=== PATIENT | female | born 1960 | race African-American/Black ===

== ENCOUNTER 2019-05-03 00:48 | Emergency (ER) | payer MEDICAID ==
[~2019-05-03] VITALS: Ht 162.6 cm; Wt 136.5 kg
[2019-05-03 00:56] VITALS: BP 148/91
[2019-05-03] MEDS ORDERED: LORazepam 0.5 MG TAB PO ONE (03:00)
[2019-05-03] MEDS ORDERED: methylPREDNISolone SOD SUCC 125 MG/2 ML VL IM ONE (03:00)
[2019-05-03] MEDS ORDERED: KETOROLAC TROMETH 60MG/2ML VIAL IM ONE (03:00)
[2019-05-03] MEDS ORDERED: BACITRACIN TOP OINT 1 UD PKG TOP ONE (04:15)
== END 2019-05-03 04:18 | disposition home or self-care (01) ==
LOC: ER 00:52
DX: S91.202A Unspecified open wound of left great toe with damage to nail, initial encounter (principal); X58.XXXA Exposure to other specified factors, initial encounter; Y93.89 Activity, other specified; Y92.89 Other specified places as the place of occurrence of the external cause; Y99.8 Other external cause status
CPT/HCPCS: 11730; 73630; 96372; 99283; J1885; J2930

== ENCOUNTER 2019-07-11 14:08 | Emergency (ER) | payer MEDICAID ==
[~2019-07-11] VITALS: Ht 162.6 cm; Wt 135.2 kg
[2019-07-11 17:18] VITALS: BP 123/81
== END 2019-07-11 17:34 | disposition home or self-care (01) ==
LOC: ER 14:08
DX: M19.012 Primary osteoarthritis, left shoulder (principal); M25.511 Pain in right shoulder; M79.671 Pain in right foot; Z90.710 Acquired absence of both cervix and uterus; Z98.51 Tubal ligation status; V43.52XA Car driver injured in collision with other type car in traffic accident, initial encounter; Y93.89 Activity, other specified; Y92.488 Other paved roadways as the place of occurrence of the external cause; Y99.8 Other external cause status
CPT/HCPCS: 73030; 73630

== ENCOUNTER 2019-08-17 15:08 | Emergency (ER) | payer MEDICAID, OTHER ==
[~2019-08-17] VITALS: Ht 162.6 cm; Wt 133.4 kg
[2019-08-17] MEDS ORDERED: cefTRIAXone W LIDOCAINE 1 GM IM IM ONE (15:45)
[2019-08-17] MEDS ORDERED: cefTRIAXone SOD 1,000 MG VL IM ONE (16:00)
[2019-08-17] MEDS ORDERED: cefTRIAXone SOD 1,000 MG VL ONE (16:11)
[2019-08-17 16:38] LABS: Basophils # (auto) 0.1 uL; Basophils % (auto) 0.7 % (0.0-2.0); Eosinophils # (auto) 0.1 uL; Eosinophils % (auto) 1.3 % (0.0-7.0); Hematocrit 43.9 % (36.0-46.0); Hemoglobin 15.1 g/dL (12.2-16.2); Lymphocytes # (auto) 3.4 uL; Lymphocytes % (auto) 32.8 % (10.0-50.0); Mean Corpuscular Hgb Conc. 34.4 g/dL (32.0-36.0); Monocytes # (auto) 0.8 uL; Neutrophils # (auto) 5.9 uL; Neutrophils % (auto) 57.2 % (37.0-80.0); Nucleated Red Blood Cells % 0.1 %; Platelet Count (auto) 248 10^3/uL (140-450); Red Blood Cells 4.87 10^6/uL (4.0-5.20); Red Cell Distribution Width 13.9 % (11.8-14.3); White Blood Cell 10.4 10^3/uL (4.4-10.8)
[2019-08-17 16:46] LABS: Albumin 3.6 g/dL (3.4-5.0); Calcium 9.2 mg/dL (8.5-10.1)
[2019-08-17 16:49] LABS: BUN/Creatinine Ratio 14.3; Bilirubin, Total 0.4 mg/dL (0.2-1.0); Total Protein 8.2 g/dL (6.4-8.2)
[2019-08-17 17:00] VITALS: BP 142/86
== END 2019-08-17 17:12 | disposition home or self-care (01) ==
LOC: ER 15:12
DX: J44.1 Chronic obstructive pulmonary disease with (acute) exacerbation (principal); F17.210 Nicotine dependence, cigarettes, uncomplicated
CPT/HCPCS: 36415; 71046; 80053; 85025; 99284; J0696

== ENCOUNTER 2021-02-18 10:03 | Emergency (ER) | payer OTHER, MEDICAID ==
[~2021-02-18] VITALS: Ht 162.6 cm; Wt 131.5 kg
[2021-02-18 10:15] VITALS: BP 137/93
[2021-02-18 11:14] LABS: Basophils # (auto) 0.1 10 ^3/uL (0-0.2); Basophils % (auto) 0.7 % (0.0-2.0); Eosinophils # (auto) 0.1 10 ^3/uL (0-0.8); Hematocrit 45.2 % (36.0-46.0); Hemoglobin 16.1 g/dL (12.2-16.2); Lymphocytes % (auto) 26.7 % (10.0-50.0); Mean Corpuscular Hemoglobin 31.9 pg (28.0-32.0); Mean Corpuscular Hgb Conc. 35.6 g/dL (32.0-36.0); Mean Corpuscular Volume 89.7 fL (80.0-100.0); Monocytes # (auto) 0.8 10 ^3/uL (0-1.3); Monocytes % (auto) 7.1 % (0.0-12.0); Neutrophils # (auto) 7.2 10 ^3/uL (1.6-8.6); Neutrophils % (auto) 64.5 % (37.0-80.0); Nucleated Red Blood Cells % 0.2 %; Red Blood Cells 5.04 10^6/uL (4.0-5.20); Red Cell Distribution Width 13.9 % (11.8-14.3); White Blood Cell 11.1 10^3/uL (4.4-10.8)
[2021-02-18 11:34] LABS: Albumin 3.5 g/dL (3.4-5.0); Potassium 4.2 mmol/L (3.5-5.1)
[2021-02-18 11:43] LABS: Bilirubin, Total 0.4 mg/dL (0.2-1.0); Total Protein 8.2 g/dL (6.4-8.2)
== END 2021-02-18 12:24 | disposition home or self-care (01) ==
LOC: ER 10:03
DX: J20.9 Acute bronchitis, unspecified (principal); F17.210 Nicotine dependence, cigarettes, uncomplicated; Z90.49 Acquired absence of other specified parts of digestive tract; Z90.89 Acquired absence of other organs; Z90.710 Acquired absence of both cervix and uterus; Z20.822 Contact with and (suspected) exposure to COVID-19
CPT/HCPCS: 36415; 71045; 80053; 85025; 87426; 93005

== ENCOUNTER 2021-04-30 13:14 | Inpatient (IN) | payer OTHER, MEDICAID ==
[~2021-04-30] VITALS: Ht 162.6 cm; Wt 135.1 kg
[2021-04-30 14:33] LABS: Basophils # (auto) 0.1 10 ^3/uL (0-0.2); Basophils % (auto) 0.9 % (0.0-2.0); Eosinophils # (auto) 0.1 10 ^3/uL (0-0.8); Eosinophils % (auto) 0.6 % (0.0-7.0); Hemoglobin 16.4 g/dL (12.2-16.2); Lymphocytes # (auto) 3.6 10 ^3/uL (0.4-5.4); Lymphocytes % (auto) 28.9 % (10.0-50.0); Mean Corpuscular Hemoglobin 30.7 pg (28.0-32.0); Mean Corpuscular Hgb Conc. 34.2 g/dL (32.0-36.0); Mean Corpuscular Volume 89.8 fL (80.0-100.0); Monocytes % (auto) 8.2 % (0.0-12.0); Neutrophils # (auto) 7.7 10 ^3/uL (1.6-8.6); Neutrophils % (auto) 61.4 % (37.0-80.0); Nucleated Red Blood Cells % 0.1 %; Red Blood Cells 5.34 10^6/uL (4.0-5.20); Red Cell Distribution Width 13.6 % (11.8-14.3); White Blood Cell 12.6 10^3/uL (4.4-10.8)
[2021-04-30 14:55] LABS: Albumin 3.9 g/dL (3.4-5.0); Calcium 9.7 mg/dL (8.5-10.1)
[2021-04-30 15:01] LABS: Bilirubin, Total 0.4 mg/dL (0.2-1.0); Total Protein 8.7 g/dL (6.4-8.2)
[2021-04-30 15:35] LABS: Magnesium 2.2 mg/dL (1.6-2.6)
[2021-04-30] MEDS ORDERED: FUROSEMIDE 40 MG/4 ML VIAL IV ONE (16:45)
[2021-04-30 17:09] LABS: Urine Bacteria NONE SEEN /hpf (None Seen); Urine Blood 2+ /uL (Negative); Urine Mucus FEW (None Seen); Urine Specific Gravity 1.022 (1.001-1.035); Urine WBC 1 /hpf (0 - 5)
[2021-04-30] MEDS ORDERED: TEMAZEPAM 15 MG CAP PO PRN (21:00)
[2021-04-30] MEDS ORDERED: ONDANSETRON HCL 4 MG/2 ML VIAL IV PRN (21:00)
[2021-04-30] MEDS ORDERED: MORPHINE SULFATE INJECTION 2 MG/ML SYRG IV PRN (21:00)
[2021-04-30] MEDS ORDERED: ACETAMINOPHEN 325 MG TAB PO PRN (21:00)
[2021-04-30] MEDS ORDERED: AZITHROMYCIN 500MG/ 250ML 250 ML IV ONE (21:00)
[2021-04-30] MEDS ORDERED: NITROGLYCERIN 0.4 MG SL TAB SL PRN (21:00)
[2021-04-30] MEDS: METOPROLOL TARTRATE 25 MG TAB PO SCH (21:32)
[2021-04-30] MEDS: ATORVASTATIN 20 MG TAB PO SCH (22:07)
[2021-05-01] MEDS: HYDROcodone-ACET 5/325MG TAB PO PRN ×3 (02:28→17:36)
[2021-05-01 07:44] LABS: Basophils # (auto) 0.1 10 ^3/uL (0-0.2); Basophils % (auto) 0.7 % (0.0-2.0); Eosinophils # (auto) 0.1 10 ^3/uL (0-0.8); Eosinophils % (auto) 0.9 % (0.0-7.0); Hematocrit 45.4 % (36.0-46.0); Hemoglobin 15.3 g/dL (12.2-16.2); Lymphocytes # (auto) 3.9 10 ^3/uL (0.4-5.4); Lymphocytes % (auto) 34.7 % (10.0-50.0); Mean Corpuscular Hemoglobin 30.6 pg (28.0-32.0); Mean Corpuscular Hgb Conc. 33.6 g/dL (32.0-36.0); Mean Corpuscular Volume 91.1 fL (80.0-100.0); Monocytes # (auto) 0.8 10 ^3/uL (0-1.3); Monocytes % (auto) 7.6 % (0.0-12.0); Neutrophils # (auto) 6.2 10 ^3/uL (1.6-8.6); Neutrophils % (auto) 56.1 % (37.0-80.0); Nucleated Red Blood Cells % 0.1 %; Red Blood Cells 4.99 10^6/uL (4.0-5.20); Red Cell Distribution Width 13.6 % (11.8-14.3); White Blood Cell 11.1 10^3/uL (4.4-10.8)
[2021-05-01 07:58] LABS: Albumin 3.6 g/dL (3.4-5.0); Calcium 9.3 mg/dL (8.5-10.1); Potassium 3.6 mmol/L (3.5-5.1)
[2021-05-01 08:01] LABS: Bilirubin, Total 0.6 mg/dL (0.2-1.0)
[2021-05-01] MEDS: guaiFENesin-DM 100/10mg/5ml SYR PO PRN (08:40)
[2021-05-01] MEDS: METOPROLOL TARTRATE 25 MG TAB PO SCH ×2 (09:38→21:46)
[2021-05-01] MEDS: ENOXAPARIN SOD 40 MG/0.4 ML SYRINGE SC SCH (09:40)
[2021-05-01] MEDS: AZITHROMYCIN 500MG/ 250ML 250 ML IV SCH (09:40)
[2021-05-01] MEDS: PANTOPRAZOLE 40 MG TAB PO SCH (09:40)
[2021-05-01] MEDS: ASPirin 81 mg TAB PO SCH (09:40)
[2021-05-01] MEDS ORDERED: FUROSEMIDE 40 MG TAB PO SCH (10:00)
[2021-05-01] MEDS ORDERED: CHOL1CAP58 PO (11:59)
[2021-05-01] MEDS ORDERED: ALBU108A5 IN (11:59)
[2021-05-01] MEDS ORDERED: IBUP800T27 PO (11:59)
[2021-05-01] MEDS ORDERED: PROM1SOL4 PO (11:59)
[2021-05-01] MEDS ORDERED: OXYC325T14 PO (11:59)
[2021-05-01] MEDS ORDERED: METH4TAB7 PO (11:59)
[2021-05-01] MEDS ORDERED: CIPR500T4 PO (11:59)
[2021-05-01] MEDS ORDERED: [UNRECOGNIZED DRUG - CODE] IN (11:59)
[2021-05-01] MEDS ORDERED: IOHEXOL 350 MG/ML 100ML IJ ONE (12:30)
[2021-05-01 13:30] VITALS: BP 115/81
[2021-05-01 15:54] LABS: Cholesterol 153 mg/dL (< 200); HDL Cholesterol 42 mg/dL (40-59); LDL Cholesterol 91 mg/dL (< 100); Triglycerides 124 mg/dL (< 150)
[2021-05-01 17:00] VITALS: BP 100/51
[2021-05-01] MEDS: ATORVASTATIN 20 MG TAB PO SCH (21:46)
[2021-05-01 22:00] VITALS: BP 106/73
[2021-05-02] MEDS: HYDROcodone-ACET 5/325MG TAB PO PRN (03:36)
[2021-05-02 05:00] VITALS: BP 118/73
[2021-05-02 09:00] VITALS: BP 102/71
[2021-05-02] MEDS: NICOTINE 7MG/24HR TOPICAL PATCH TD SCH (10:00)
[2021-05-02] MEDS: METOPROLOL TARTRATE 25 MG TAB PO SCH ×3 (10:00→22:00)
[2021-05-02] MEDS: ENOXAPARIN SOD 40 MG/0.4 ML SYRINGE SC SCH (10:25)
[2021-05-02] MEDS: ASPirin 81 mg TAB PO SCH (10:25)
[2021-05-02] MEDS: PANTOPRAZOLE 40 MG TAB PO SCH (10:25)
[2021-05-02] MEDS: AZITHROMYCIN 500MG/ 250ML 250 ML IV SCH (10:25)
[2021-05-02] MEDS: guaiFENesin-DM 100/10mg/5ml SYR PO PRN ×2 (10:38→16:48)
[2021-05-02 13:00] VITALS: BP 111/71
[2021-05-02 17:00] VITALS: BP 110/58
[2021-05-02 22:00] VITALS: BP 102/55
[2021-05-02] MEDS: ATORVASTATIN 20 MG TAB PO SCH (22:35)
[2021-05-03 05:00] VITALS: BP 102/58
[2021-05-03 08:41] VITALS: BP 131/86
[2021-05-03] MEDS: METOPROLOL TARTRATE 25 MG TAB PO SCH (10:00)
[2021-05-03] MEDS: PANTOPRAZOLE 40 MG TAB PO SCH (10:00)
[2021-05-03] MEDS: ENOXAPARIN SOD 40 MG/0.4 ML SYRINGE SC SCH (10:00)
[2021-05-03] MEDS: AZITHROMYCIN 500MG/ 250ML 250 ML IV SCH (10:00)
[2021-05-03] MEDS: NICOTINE 7MG/24HR TOPICAL PATCH TD SCH (10:00)
[2021-05-03] MEDS: ASPirin 81 mg TAB PO SCH (10:00)
[2021-05-03 12:26] VITALS: BP 102/55
[2021-05-03 13:00] VITALS: BP 146/89
[2021-05-03] MEDS ORDERED: ENOXAPARIN SOD 40 MG/0.4 ML SYRINGE SC SCH (22:00)
== END 2021-05-03 13:41 | disposition home or self-care (01) | DRG 193 ==
LOC: ER 13:14 → TELE 20:55 → TELE-WESTW 05-01 13:19
PROVIDERS: ADMIT Nurse Practitioner; ATTEND Family Medicine
DX: J18.9 Pneumonia, unspecified organism (principal); I50.31 Acute diastolic (congestive) heart failure; J44.0 Chronic obstructive pulmonary disease with (acute) lower respiratory infection; Z68.43 Body mass index [BMI] 50.0-59.9, adult; I11.0 Hypertensive heart disease with heart failure; D72.829 Elevated white blood cell count, unspecified; E66.01 Morbid (severe) obesity due to excess calories; F12.90 Cannabis use, unspecified, uncomplicated; F17.210 Nicotine dependence, cigarettes, uncomplicated; F32.A Depression, unspecified; R79.89 Other specified abnormal findings of blood chemistry; Z20.822 Contact with and (suspected) exposure to COVID-19; Z83.3 Family history of diabetes mellitus; Z85.41 Personal history of malignant neoplasm of cervix uteri; Z90.710 Acquired absence of both cervix and uterus; Z90.49 Acquired absence of other specified parts of digestive tract; Z98.51 Tubal ligation status; Z71.6 Tobacco abuse counseling
CPT/HCPCS: 36415; 71045; 71275; 80053; 80061; 81001; 83036; 83690; 83735; 83880; 84443; 84484; 85025; 85379; 87426; 87804; 93005; 93306; 93970; 96365; 96366; 96372; 96375; G0378

== ENCOUNTER 2022-02-23 17:15 | Emergency (ER) | payer OTHER, MEDICAID ==
[~2022-02-23] VITALS: Ht 162.6 cm; Wt 118.0 kg
[~2022-02-23 17:15] MED LIST: ALBU108A5 IN; CHOL1CAP58 PO; CIPR500T4 PO; IBUP800T27 PO; METH4TAB7 PO; OXYC325T14 PO; PROM1SOL4 PO; [UNRECOGNIZED DRUG - CODE] IN
[2022-02-23] MEDS ORDERED: ONDANSETRON ODT 4 MG TAB PO ONE (17:30)
[2022-02-23 18:44] LABS: Basophils # (auto) 0.1 10 ^3/uL (0-0.2); Basophils % (auto) 0.4 % (0.0-2.0); Eosinophils # (auto) 0 10 ^3/uL (0-0.8); Hematocrit 47.6 % (36.0-46.0); Hemoglobin 16.1 g/dL (12.2-16.2); Lymphocytes # (auto) 1.7 10 ^3/uL (0.4-5.4); Lymphocytes % (auto) 14.5 % (10.0-50.0); Mean Corpuscular Hemoglobin 30.1 pg (28.0-32.0); Mean Corpuscular Hgb Conc. 33.8 g/dL (32.0-36.0); Mean Corpuscular Volume 89.2 fL (80.0-100.0); Monocytes # (auto) 0.3 10 ^3/uL (0-1.3); Monocytes % (auto) 2.2 % (0.0-12.0); Neutrophils % (auto) 82.9 % (37.0-80.0); Red Blood Cells 5.33 10^6/uL (4.0-5.20); Red Cell Distribution Width 13.8 % (11.8-14.3)
[2022-02-23 19:01] LABS: Albumin 4.1 g/dL (3.4-5.0); Calcium 9.7 mg/dL (8.5-10.1); Potassium 3.7 mmol/L (3.5-5.1)
[2022-02-23 19:03] LABS: BUN/Creatinine Ratio 11.4
[2022-02-23 19:05] LABS: Bilirubin, Total 0.6 mg/dL (0.2-1.0); Total Protein 8.4 g/dL (6.4-8.2)
[2022-02-23] MEDS ORDERED: SODIUM CHLORIDE 0.9% 1,000 ML IVB ONE (19:30)
[2022-02-23] MEDS ORDERED: MORPHINE SULFATE 4 MG/ML SYR/VIAL IV ONE (19:30)
[2022-02-23] MEDS ORDERED: PROCHLORPERAZINE EDISYLATE 5 MG/ML 2ML VIAL IV ONE (19:30)
[2022-02-23] MEDS ORDERED: PANTOPRAZOLE 40 MG/10 ML VIAL INJ IV ONE (19:30)
[2022-02-23 19:51] LABS: Amylase 38 U/L (25-115); Lipase 61 U/L (73-393)
[2022-02-23] MEDS ORDERED: PANT40TA2 PO (21:54)
[2022-02-23] MEDS ORDERED: ONDA-144 PO (21:54)
[2022-02-23 23:28] LABS: Urine Bacteria FEW /hpf (None Seen); Urine Blood 2+ /uL (Negative); Urine Mucus FEW (None Seen); Urine Specific Gravity 1.028 (1.001-1.035); Urine WBC 12 /hpf (0 - 5)
[2022-02-23 23:37] LABS: Alcohol, Urine < 3.0 mg/dL (0-10); Amphetamine Screen, Urine NEGATIVE (NEGATIVE); Barbiturate Scree,Urine NEGATIVE (NEGATIVE); Benzodiazephine Screen, Urine NEGATIVE (NEGATIVE); Cannabinoid Screen, Urine POSITIVE (NEGATIVE); Cocaine Screen, Urine NEGATIVE (NEGATIVE); Opiate Scree,Urine POSITIVE (NEGATIVE); Phencyclidine Screen, Urine NEGATIVE (NEGATIVE)
[2022-02-24] MEDS ORDERED: NITR-87 PO (00:29)
[2022-02-24 00:45] VITALS: BP 105/63
== END 2022-02-24 00:47 | disposition home or self-care (01) ==
LOC: ER 17:19
DX: K29.70 Gastritis, unspecified, without bleeding (principal); D72.829 Elevated white blood cell count, unspecified; K42.9 Umbilical hernia without obstruction or gangrene; F17.210 Nicotine dependence, cigarettes, uncomplicated; F12.10 Cannabis abuse, uncomplicated; Z90.710 Acquired absence of both cervix and uterus; Z90.49 Acquired absence of other specified parts of digestive tract; Z98.51 Tubal ligation status
CPT/HCPCS: 36415; 74176; 80053; 80307; 80320; 81001; 82150; 83690; 85025; 96361; 96374; 96375; 99284; C9113; J0780; J2270; J7030; Q0162

== ENCOUNTER 2022-12-03 15:12 | Emergency (ER) | payer OTHER, MEDICAID ==
[~2022-12-03] VITALS: Ht 162.6 cm; Wt 127.0 kg
[~2022-12-03 15:12] MED LIST changes: +IBUP-1456 PO; -IBUP800T27 PO; -METH4TAB7 PO; +METH4TAB9 PO; +NITR-87 PO; +ONDA-144 PO; +PANT40TA2 PO
[2022-12-03] MEDS ORDERED: PROMETHAZINE HCL 25 MG/ML 1ML IM ONE (16:30)
[2022-12-03] MEDS ORDERED: MORPHINE SULFATE INJ 2 MG/ml SYRG IM ONE (16:30)
[2022-12-03] MEDS ORDERED: PRED20TA2 PO (16:57)
[2022-12-03 17:21] VITALS: BP 152/84
== END 2022-12-03 17:25 | disposition home or self-care (01) ==
LOC: ER 15:12
DX: S16.1XXA Strain of muscle, fascia and tendon at neck level, initial encounter (principal); F41.9 Anxiety disorder, unspecified; F32.9 Major depressive disorder, single episode, unspecified; G89.29 Other chronic pain; Z90.49 Acquired absence of other specified parts of digestive tract; Z90.710 Acquired absence of both cervix and uterus; Z98.51 Tubal ligation status; X50.9XXA Other and unspecified overexertion or strenuous movements or postures, initial encounter; Y93.89 Activity, other specified; Y92.89 Other specified places as the place of occurrence of the external cause; Y99.8 Other external cause status
CPT/HCPCS: 72040; 96372; 99284; J2270; J2550

== ENCOUNTER 2023-11-05 17:39 | Emergency (ER) | payer OTHER, MEDICAID ==
[~2023-11-05] VITALS: Ht 167.6 cm; Wt 122.7 kg
[~2023-11-05 17:39] MED LIST changes: +PRED20TA2 PO
[2023-11-05 18:15] VITALS: PULSE 95; RESP 14; O2SAT 94
[2023-11-05] MEDS: KETOROLAC TROMETH 60MG/2ML VIAL IM ONE (18:44)
[2023-11-05 19:30] VITALS: PULSE 80; RESP 18; TEMP 98.3; O2SAT 90
[2023-11-05 20:00] VITALS: BP 114/82; PULSE 80; RESP 18; O2SAT 90
== END 2023-11-05 22:17 | disposition home or self-care (01) ==
LOC: ER 17:39 → EDUNIT# 17:39 → EDBD 17:39 → ER 22:17
DX: S10.91XA Abrasion of unspecified part of neck, initial encounter (principal); S50.811A Abrasion of right forearm, initial encounter; M79.10 Myalgia, unspecified site; R07.89 Other chest pain; J44.9 Chronic obstructive pulmonary disease, unspecified; F17.210 Nicotine dependence, cigarettes, uncomplicated; Z90.49 Acquired absence of other specified parts of digestive tract; Z90.710 Acquired absence of both cervix and uterus; Z90.89 Acquired absence of other organs; Z79.899 Other long term (current) drug therapy; Z79.1 Long term (current) use of non-steroidal anti-inflammatories (NSAID); Z79.2 Long term (current) use of antibiotics; V43.52XA Car driver injured in collision with other type car in traffic accident, initial encounter; Y93.89 Activity, other specified; Y92.89 Other specified places as the place of occurrence of the external cause; Y99.8 Other external cause status
CPT/HCPCS: 70450; 71045; 71120; 72125; 73090; 93005; 96372; 99285; J1885